=== PATIENT | female | born 1955 | race Caucasian/White ===

== ENCOUNTER → 2016-08-04 | Outpatient (CLI) | payer OTHER ==
[~2016-08-04] MED LIST: LEVOTHYROXIN0.112 M1 PO; LIPITOR20 MG PO
--- NOTE | 2016-08-04 16:16 | RADIOLOGY REPORT PS360 ---
US THYROID HISTORY: GOITER ORDERING PHYSICIAN: Omayra Quick MD PATIENT AGE: 60 years COMPARISON: None FINDINGS: The right lobe is 5.4 x 3.4 x 3.6 cm. There is heterogeneous echogenicity with a somewhat nodular configuration. The left lobe measures 5.1 x 3 x 2.3 cm also have an heterogeneous echogenicity and somewhat nodular configuration. No discrete nodule apparent. IMPRESSION: Goiter with heterogeneous echogenicity
--- NOTE | 2016-08-31 09:57 | RADIOLOGY REPORT PS360 ---
DIG MAMM-SCREEN [facility]OMAS W/CAD CAD Screening ORDERING PHYSICIAN : Omayra Quick MD PATIENT AGE: 60 years GENDER: Female COMPARISON: Previous mammograms: Outside mammograms have finally arrived and are extremely helpful in this patient. They are from [facility]. [facility] [place]. The studies are dated March 2015, 2013 and January also utilized INDICATION: Routine screening . No female hormones currently listed. 2008 HISTORY of breast cancer with lumpectomy, chemotherapy, radiation with lymph node dissection 2008 TECHNIQUE: Standard CC and MLO images were obtained. R2 CAD reviewed. Axillary cc right and left also obtained FINDINGS: Again the outside films are extremely helpful and works waiting for to provide a useful comparison. RIGHT BREAST: There is a area of stellate scarring which appears stable at the upper outer quadrant of the right breast. Reflecting the previous lumpectomy site.. Although there is prominent architectural distortion at this site, the overall appearance and size is not changed appreciably.. Stable appearance of this so-called 'dark star ' appearance reflecting some fat centrally.- This is compatible with an area of post biopsy, post lumpectomy scarring and radiation.. This area dates back to at least October 2010 and appears very unchanged in appearance versus 2014. No new areas of concern on right otherwise seen. The Annual follow-up would be adequate LEFT BREAST: Left breast appears stable with no dominant mass nor suspicious calcifications. No interval change follow-up in one year on left Moderate density breast with scattered fibroglandular elements bilateral IMPRESSION: 1. Stable lumpectomy/radiation changes RIGHT BREAST. Outside films have finally arrived & are very helpful & confirm unchanged appearance at the stellate appearing lumpectomy/radiation site since 2014.. This this prominent stellate scar seen at superior upper outer quadrant right breast, at 11 o'clock position.- Unchanged appearance since 2014;. & this area dates back to to 2010. 2. Stable LEFT BREAST. Follow-up in one year bilaterally BI-RADS CATEGORY: 2 RECOMMENDED FOLLOWUP: 12M 12 MONTH FOLLOW-UP (A letter has been sent to the patient regarding results of the study.)
== END ==
LOC: RAD 15:00
DX: E04.9 Nontoxic goiter, unspecified (principal); Z12.31 Encounter for screening mammogram for malignant neoplasm of breast; C50.911 Malignant neoplasm of unspecified site of right female breast
CPT/HCPCS: G0202